=== PATIENT | female | born 1990 | race Two or more races ===

== ENCOUNTER 2018-12-01 15:35 | Emergency (ER) | payer MEDICAID, OTHER ==
[~2018-12-01] VITALS: Ht 154.9 cm; Wt 104.3 kg
[2018-12-01 15:40] VITALS: BP 122/62
[2018-12-01] MEDS ORDERED: ACETAMINOPHEN/CODEINE#3 (300/30mg) TAB PO ONE (19:00)
[2018-12-01] MEDS ORDERED: DexAMETHasone SOD PHOS 10MG/1ML VIAL INJ IM ONE (19:00)
== END 2018-12-01 19:38 | disposition home or self-care (01) ==
LOC: ER 15:40
DX: O26.893 Other specified pregnancy related conditions, third trimester (principal); M54.31 Sciatica, right side; M79.604 Pain in right leg; Z3A.00 Weeks of gestation of pregnancy not specified
CPT/HCPCS: 96372; 99283; J1100